=== PATIENT | male | born 1995 | race Hispanic/Latino ===

== ENCOUNTER 2016-06-18 08:00 | Emergency (ER) | payer OTHER ==
[2016-06-18 08:20] VITALS: BP 127/79
--- NOTE | 2016-06-18 16:29 | Emergency Department Report ---
HPI - General Chief Complaint: Chest Pain ED Past Medical Hx - Past Medical History Hx Hypertension: No Hx CVA: No Hx Heart Attack/AMI: No Hx Diabetes: No Hx Deep Vein Thrombosis: No Hx Pulmonary Embolism: No Hx GERD: No Hx Liver Disease: No Hx Renal Disease: No Hx Sickle Cell Disease: No Hx Arthritis: No Hx Headaches / Migraines: No Hx Seizures: No Hx Kidney Stones: No Hx Psychiatric Treatment: No (Anxiety) Hx Asthma: No Hx COPD: No Hx Dementia: No Hx HIV: No Additional medical history: h/o Drug and alcohol dependence - Surgical History Hx Coronary Stent: No Hx Open Heart Surgery: No Hx Pacemaker: No Hx Internal Defibrillator: No Hx Cholecystectomy: No Hx Appendectomy: No Hx Breast Surgery: No - Social History Smoking Status: Current Every Day Smoker Substance Use Type: None - Medications Home Medications: Home Medications Medication Instructions Recorded Confirmed Last Taken Type Acetamin/Codeine 120-12Mg/5 ml 5 ml PO TID PRN #30 ml 03/03/15 Unknown Rx [Tylenol/Codeine] Ondansetron [Zofran Odt] 4 mg PO Q4H #14 tab.rapdis 03/03/15 Unknown Rx Acetaminophen/Codeine 1 tab PO Q6H PRN #20 tab 03/31/15 Unknown Rx [Acetaminophen-Codeine #3 TAB] Amoxicillin [Trimox CAP] 500 mg PO Q8H #30 capsule 03/31/15 Unknown Rx Ibuprofen [Motrin 600 MG tab] 600 mg PO Q8H PRN #60 tablet 03/31/15 Unknown Rx predniSONE [Deltasone] 40 mg PO DAILY #10 tab 03/31/15 Unknown Rx Prednisone [predniSONE 10 mg 10 mg PO .TAPER #1 tab.ds.pk 04/05/15 Unknown Rx (6-Day Pack, 21 Tabs)] Promethazine [Phenergan TAB] 25 mg PO Q6HR PRN #20 tab 04/05/15 Unknown Rx hydrOXYzine PAMOATE [Vistaril] 25 mg PO Q6HR PRN #16 capsule 12/25/15 Unknown Rx Amoxicillin/K Clav Tab [Augmentin 1 tab PO Q12HR #20 tab 03/30/16 Unknown Rx 875 mg] Ibuprofen [Motrin] 800 mg PO Q8HR PRN #21 tablet 03/30/16 Unknown Rx ED Review of Systems ROS: Stated complaint: CHEST PAIN/SOB Other details as noted in HPI Physical Exam - Physical Exam Vital Signs: Vital Signs 06/18/16 08:15 Temperature 98.5 F Pulse Rate 80 Respiratory 16 Rate Blood Pressure 127/79 O2 Sat by Pulse 98 Oximetry ED Course Vital Signs 06/18/16 08:15 Temperature 98.5 F Pulse Rate 80 Respiratory 16 Rate Blood Pressure 127/79 O2 Sat by Pulse 98 Oximetry Critical care attestation.: If time is entered above; I have spent that time in minutes in the direct care of this critically ill patient, excluding procedure time. ED Disposition Condition: Stable Referrals: PRIMARY CARE [Primary Care Provider] - 3-5 Days
--- NOTE | 2016-06-19 06:15 | ED Elopement Review ---
ED Pt Elopement review - Call Back decision Pt Call Back Decision: No action required
== END 2016-06-18 16:00 | disposition left against medical advice (07) ==
LOC: ED 08:00
DX: R07.9 Chest pain, unspecified (principal); Z53.21 Procedure and treatment not carried out due to patient leaving prior to being seen by health care provider

== ENCOUNTER 2018-09-23 07:23 | Emergency (ER) | payer SELFPAY ==
[2018-09-23 08:17] VITALS: BP 126/78
--- NOTE | 2018-09-23 09:37 | Emergency Department Report ---
ED General Adult HPI - General Stated complaint: CHEST PAIN/RT SIDE PAIN Time Seen by Provider: 09/23/18 09:22 - History of Present Illness Initial comments: Patient is a 23-year-old male who is presenting with cough, congestion and sore throat for last 3 days. Patient states that most of his pain is with swallowing. This is a 6 out of 10 in severity and sharp. Patient also is complaining of some sinus congestion as well. Patient feels great aching in his chest has a dry cough. Patient denies any fevers chills nausea vomiting or diarrhea time. Improves with: none - Related Data Previous Rx's Medication Instructions Recorded Last Taken Type Acetamin/Codeine 120-12Mg/5 ml 5 ml PO TID PRN #30 ml 03/03/15 Unknown Rx [Tylenol/Codeine] Ondansetron [Zofran Odt] 4 mg PO Q4H #14 tab.rapdis 03/03/15 Unknown Rx Acetaminophen/Codeine [Tylenol 1 tab PO Q6H PRN #20 tab 03/31/15 Unknown Rx /Codeine # 3 tab] Amoxicillin [Trimox CAP] 500 mg PO Q8H #30 capsule 03/31/15 Unknown Rx Ibuprofen [Motrin 600 MG tab] 600 mg PO Q8H PRN #60 tablet 03/31/15 Unknown Rx predniSONE [Deltasone] 40 mg PO DAILY #10 tab 03/31/15 Unknown Rx Prednisone [predniSONE 10 mg 10 mg PO .TAPER #1 tab.ds.pk 04/05/15 Unknown Rx (6-Day Pack, 21 Tabs)] Promethazine [Phenergan] 25 mg PO Q6HR PRN #20 tab 04/05/15 Unknown Rx hydrOXYzine PAMOATE [Vistaril] 25 mg PO Q6HR PRN #16 capsule 12/25/15 Unknown Rx Amoxicillin/K Clav Tab [Augmentin 1 tab PO Q12HR #20 tab 03/30/16 Unknown Rx 875 mg] Ibuprofen [Motrin] 800 mg PO Q8HR PRN #21 tablet 03/30/16 Unknown Rx Amoxicillin/Potassium Clav 1 each PO BID #14 tablet 09/23/18 Unknown Rx [Augmentin 875-125 Tablet] Benzonatate [Tessalon Perles] 100 mg PO Q8HR #10 capsule 05/20/19 Unknown Rx Fluticasone [Flonase] 1 spray NS QDAY #1 bottle 09/23/18 Unknown Rx predniSONE [Deltasone] 20 mg PO QDAY #5 tab 09/23/18 Unknown Rx traMADol [Ultram] 50 mg PO Q6HR PRN #12 tablet 09/23/18 Unknown Rx Allergies Allergy/AdvReac Type Severity Reaction Status Date / Time No Known Allergies Allergy Verified 02/05/14 11:54 ED Review of Systems ROS: Stated complaint: CHEST PAIN/RT SIDE PAIN Other details as noted in HPI Comment: All other systems reviewed and negative ED Past Medical Hx - Past Medical History Hx Hypertension: No Hx CVA: No Hx Heart Attack/AMI: No Hx Diabetes: No Hx Deep Vein Thrombosis: No Hx Pulmonary Embolism: No Hx GERD: No Hx Liver Disease: No Hx Renal Disease: No Hx Sickle Cell Disease: No Hx Arthritis: No Hx Headaches / Migraines: No Hx Seizures: No Hx Kidney Stones: No Hx Psychiatric Treatment: No (Anxiety) Hx Asthma: No Hx COPD: No Hx Dementia: No Hx HIV: No Additional medical history: h/o Drug and alcohol dependence - Surgical History Hx Coronary Stent: No Hx Open Heart Surgery: No Hx Pacemaker: No Hx Internal Defibrillator: No Hx Cholecystectomy: No Hx Appendectomy: No Hx Breast Surgery: No - Social History Smoking Status: Current Every Day Smoker Substance Use Type: Alcohol - Medications Home Medications: Home Medications Medication Instructions Recorded Confirmed Last Taken Type Acetamin/Codeine 120-12Mg/5 ml 5 ml PO TID PRN #30 ml 03/03/15 Unknown Rx [Tylenol/Codeine] Ondansetron [Zofran Odt] 4 mg PO Q4H #14 tab.rapdis 03/03/15 Unknown Rx Acetaminophen/Codeine [Tylenol 1 tab PO Q6H PRN #20 tab 03/31/15 Unknown Rx /Codeine # 3 tab] Amoxicillin [Trimox CAP] 500 mg PO Q8H #30 capsule 03/31/15 Unknown Rx Ibuprofen [Motrin 600 MG tab] 600 mg PO Q8H PRN #60 tablet 03/31/15 Unknown Rx predniSONE [Deltasone] 40 mg PO DAILY #10 tab 03/31/15 Unknown Rx Prednisone [predniSONE 10 mg 10 mg PO .TAPER #1 tab.ds.pk 04/05/15 Unknown Rx (6-Day Pack, 21 Tabs)] Promethazine [Phenergan] 25 mg PO Q6HR PRN #20 tab 04/05/15 Unknown Rx hydrOXYzine PAMOATE [Vistaril] 25 mg PO Q6HR PRN #16 capsule 12/25/15 Unknown Rx Amoxicillin/K Clav Tab [Augmentin 1 tab PO Q12HR #20 tab 03/30/16 Unknown Rx 875 mg] Ibuprofen [Motrin] 800 mg PO Q8HR PRN #21 tablet 03/30/16 Unknown Rx Amoxicillin/Potassium Clav 1 each PO BID #14 tablet 09/23/18 Unknown Rx [Augmentin 875-125 Tablet] Benzonatate [Tessalon Perles] 100 mg PO Q8HR #10 capsule 09/23/18 Unknown Rx Fluticasone [Flonase] 1 spray NS QDAY #1 bottle 09/23/18 Unknown Rx predniSONE [Deltasone] 20 mg PO QDAY #5 tab 09/23/18 Unknown Rx traMADol [Ultram] 50 mg PO Q6HR PRN #12 tablet 09/23/18 Unknown Rx ED Physical Exam - General General appearance: alert, in no apparent distress - Head Head exam: Present: atraumatic, normocephalic, other (frontal sinus tenderness) - Eye Eye exam: Present: normal appearance. Absent: PERRL, EOMI - ENT ENT exam: Present: mucous membranes moist - Expanded ENT Exam Expanded Mouth exam: Present: tongue normal. Absent: drooling, trismus, muffled voice, tongue elevation Throat exam: Positive: tonsillar erythema, other (tonsils surgically abscent). Negative: tonsillomegaly, tonsillar exudate - Neck Neck exam: Present: normal inspection - Respiratory Respiratory exam: Present: normal lung sounds bilaterally. Absent: respiratory distress, wheezes, rales - Cardiovascular Cardiovascular Exam: Present: regular rate, normal rhythm. Absent: systolic murmur, diastolic murmur, rubs, gallop - GI/Abdominal GI/Abdominal exam: Present: soft, normal bowel sounds. Absent: distended, tenderness, guarding - Rectal Rectal exam: Present: deferred - Extremities Exam Extremities exam: Present: normal inspection - Back Exam Back exam: Present: normal inspection - Neurological Exam Neurological exam: Present: alert, oriented X3 - Psychiatric Psychiatric exam: Present: normal affect, normal mood - Skin Skin exam: Present: warm, dry, intact, normal color. Absent: rash ED Course Vital Signs 09/23/18 08:12 Temperature 98.8 F Pulse Rate 94 H Respiratory 16 Rate Blood Pressure 126/78 O2 Sat by Pulse 98 Oximetry ED Medical Decision Making - EKG Data -: EKG Interpreted by Me EKG shows normal: sinus rhythm, axis, intervals, QRS complexes, ST-T waves Rate: normal - EKG Data Interpretation: normal EKG - Medical Decision Making Patient with pharyngitis and sinus congestion. Patient started on a Augmentin, steroids and medications for symptomatic relief. Critical care attestation.: If time is entered above; I have spent that time in minutes in the direct care of this critically ill patient, excluding procedure time. ED Disposition Clinical Impression: Acute pharyngitis Qualifiers: Pharyngitis/tonsillitis etiology: unspecified etiology Qualified Code(s): J02.9 - Acute pharyngitis, unspecified Acute sinusitis Qualifiers: Sinusitis location: unspecified location Recurrence: non-recurrent Qualified Code(s): J01.90 - Acute sinusitis, unspecified Disposition: DC-01 TO HOME OR SELFCARE Is pt being admited?: No Does the pt Need Aspirin: No Condition: Stable Instructions: Pharyngitis (ED), Sinusitis (ED) Referrals: [facility] [Other] - 3-5 Days Time of Disposition: 09:41
== END 2018-09-23 10:00 | disposition home or self-care (01) ==
LOC: ED 07:23
DX: J02.9 Acute pharyngitis, unspecified (principal); J01.90 Acute sinusitis, unspecified
CPT/HCPCS: 93005; 93010; 99282

== ENCOUNTER 2019-07-10 16:25 | Emergency (ER) | payer SELFPAY ==
--- NOTE | 2019-07-10 16:42 | Emergency Department Report ---
Blank Doc - Documentation Documentation: 23-year-old male that presents with n/v/d. This initial assessment/diagnostic orders/clinical plan/treatment(s) is/are subject to change based on patient's health status, clinical progression and re- assessment by fellow clinical providers in the ED. Further treatment and workup at subsequent clinical providers discretion. Patient/guardians urged not to elope from the ED as their condition may be serious if not clinically assessed and managed. Initial orders include: 1- Patient sent to [facility] for further evaluation and treatment 2- labs
[2019-07-10 16:46] VITALS: BP 139/93
[2019-07-10 17:03] LABS: Basophils # (Auto) 0.1 K/mm3 (0.0-0.1); Basophils % (Auto) 0.5 % (0.0-1.8); Eosinophils # (Auto) 0.1 K/mm3 (0.0-0.4); Eosinophils % (Auto) 0.6 % (0.0-4.3); Hematocrit 50.4 % (35.5-45.6); Hemoglobin 16.7 gm/dl (11.8-15.2); Lymphocytes # (Auto) 1.8 K/mm3 (1.2-5.4); Lymphocytes % (Auto) 15.8 % (13.4-35.0); Mean Corpuscular HGB Conc 33 % (32-34); Mean Corpuscular Volume 87 fl (84-94); Monocytes % (Auto) 9.1 % (0.0-7.3); Platelet Count 181 K/mm3 (140-440); Red Cell Distribution Width 13.5 % (13.2-15.2)
[2019-07-10 17:24] LABS: Alanine Aminotransferase 10 units/L (7-56); Albumin 5.1 g/dL (3.9-5); BUN/Creatinine Ratio 13; Blood Urea Nitrogen 10 mg/dL (9-20); Calcium 10.5 mg/dL (8.4-10.2); Hemolysis Index 13
== END 2019-07-10 16:50 | disposition left against medical advice (07) ==
LOC: ED 16:25
DX: R11.2 Nausea with vomiting, unspecified (principal); R42 Dizziness and giddiness; Z53.21 Procedure and treatment not carried out due to patient leaving prior to being seen by health care provider
CPT/HCPCS: 36415; 80053; 83690; 85025

== ENCOUNTER 2019-07-10 19:31 | Emergency (ER) | payer SELFPAY ==
[2019-07-10] MEDS ORDERED: dexAMETHasone 20 MG/5 ML VIAL IM ONE (20:06)
[2019-07-10] MEDS ORDERED: LIDOCAINE VISCOUS 2% 15 ML ORAL LIQD PO ONE (20:06)
[2019-07-10] MEDS ORDERED: ONDANSETRON 4 MG ODT TAB PO ONE (20:06)
[2019-07-10] MEDS ORDERED: ACETAMINOPHEN 500 MG TAB PO ONE (20:07)
[2019-07-10 20:23] VITALS: BP 126/96
--- NOTE | 2019-07-10 21:10 | XRay Report ---
CHEST 2 VIEWS INDICATION / CLINICAL INFORMATION: cough. COMPARISON: None available. FINDINGS: SUPPORT DEVICES: None. HEART / MEDIASTINUM: No significant abnormality. LUNGS / PLEURA: No significant pulmonary or pleural abnormality. No pneumothorax. ADDITIONAL FINDINGS: No significant additional findings. IMPRESSION: 1. No acute findings. Signer Name: Vinayak Kinney MD Signed: 07/10/2019 9:06 PM Workstation Name: [id number]
--- NOTE | 2019-07-10 23:06 | Emergency Department Report ---
ED N/V/D HPI - General Chief complaint: Nausea/Vomiting/Diarrhea Stated complaint: VOMITING/LOWER BACK PAIN Source: patient Mode of arrival: Ambulatory Limitations: No Limitations - History of Present Illness Initial comments: Patient is a 23-year-old white male with no past medical history who presents to the ED with complaint of acute onset persistent intermittent nausea and vomiting, sore throat, mild dry cough, diffuse body aches and pains and generalized weakness for the last 2 days. Patient denies chest pain, shortness of breath, abdominal pain, diarrhea, chest pain, dizziness, syncope, palpitations, dysuria, urinary frequency and urgency and testicular pain, headache or change in vision, fever and chills. MD complaint: nausea, vomiting, other (sore throat) -: Sudden, days(s) (2) Description of Vomiting: food contents Associated Abdominal Pain: No Location: diffuse Radiation: none Pain Scale: 0 Quality: dull Consistency: intermittent Improves with: none Worsens with: none Associated Symptoms: denies other symptoms, nausea/vomiting. denies: myalgias, chest pain, cough, diaphoresis, fever/chills, headaches, loss of appetite, rash, dysuria, shortness of breath, syncope - Related Data Previous Rx's Medication Instructions Recorded Last Taken Type Acetamin/Codeine 120-12Mg/5 ml 5 ml PO TID PRN #30 ml 03/03/15 Unknown Rx [Tylenol/Codeine] Ondansetron [Zofran Odt] 4 mg PO Q4H #14 tab.rapdis 03/03/15 Unknown Rx Acetaminophen/Codeine [Tylenol 1 tab PO Q6H PRN #20 tab 03/31/15 Unknown Rx /Codeine # 3 tab] Amoxicillin [Trimox CAP] 500 mg PO Q8H #30 capsule 03/31/15 Unknown Rx predniSONE [Deltasone] 40 mg PO DAILY #10 tab 03/31/15 Unknown Rx Promethazine [Phenergan] 25 mg PO Q6HR PRN #20 tab 04/05/15 Unknown Rx hydrOXYzine PAMOATE [Vistaril] 25 mg PO Q6HR PRN #16 capsule 12/25/15 Unknown Rx Amoxicillin/K Clav Tab [Augmentin 1 tab PO Q12HR #20 tab 03/30/16 Unknown Rx 875 mg] Ibuprofen [Motrin] 800 mg PO Q8HR PRN #21 tablet 03/30/16 Unknown Rx Amoxicillin/Potassium Clav 1 each PO BID #14 tablet 09/23/18 Unknown Rx [Augmentin 875-125 Tablet] Benzonatate [Tessalon Perles] 100 mg PO Q8HR #10 capsule 09/23/18 Unknown Rx Fluticasone [Flonase] 1 spray NS QDAY #1 bottle 09/23/18 Unknown Rx predniSONE [Deltasone] 20 mg PO QDAY #5 tab 09/23/18 Unknown Rx traMADoL [Ultram] 50 mg PO Q6HR PRN #12 tablet 09/23/18 Unknown Rx Azithromycin [Zithromax Z-KADE] 250 mg PO DAILY #6 tablet 07/10/19 Unknown Rx Ibuprofen [Motrin 600 MG tab] 600 mg PO Q8H PRN #24 tablet 07/10/19 Unknown Rx Lidocaine Viscous 2% 10 ml PO Q6H PRN #120 ml 07/10/19 Unknown Rx Prednisone [predniSONE 10 mg 10 mg PO .TAPER #1 tab.ds.pk 07/10/19 Unknown Rx (6-Day Pack, 21 Tabs)] Allergies Allergy/AdvReac Type Severity Reaction Status Date / Time No Known Allergies Allergy Verified 07/10/19 16:28 ED Review of Systems ROS: Stated complaint: VOMITING/LOWER BACK PAIN Other details as noted in HPI Constitutional: denies: chills, fever Eyes: denies: eye pain, eye discharge, vision change ENT: throat pain, congestion. denies: ear pain Respiratory: cough. denies: shortness of breath, wheezing Cardiovascular: denies: chest pain, palpitations Endocrine: no symptoms reported Gastrointestinal: nausea, vomiting. denies: abdominal pain, diarrhea Genitourinary: denies: urgency, dysuria Musculoskeletal: denies: back pain, joint swelling, arthralgia Skin: denies: rash, lesions Neurological: denies: headache, weakness, paresthesias Psychiatric: denies: anxiety, depression Hematological/Lymphatic: denies: easy bleeding, easy bruising ED Past Medical Hx - Past Medical History Hx Hypertension: No Hx CVA: No Hx Heart Attack/AMI: No Hx Diabetes: No Hx Deep Vein Thrombosis: No Hx Pulmonary Embolism: No Hx GERD: No Hx Liver Disease: No Hx Renal Disease: No Hx Sickle Cell Disease: No Hx Arthritis: No Hx Headaches / Migraines: No Hx Seizures: No Hx Kidney Stones: No Hx Psychiatric Treatment: (Anxiety) Hx Asthma: No Hx COPD: No Hx Dementia: No Hx HIV: No Additional medical history: h/o Drug and alcohol dependence - Surgical History Hx Coronary Stent: No Hx Open Heart Surgery: No Hx Pacemaker: No Hx Internal Defibrillator: No Hx Cholecystectomy: No Hx Appendectomy: No Hx Breast Surgery: No - Social History Smoking Status: Current Some Day Smoker Substance Use Type: None - Medications Home Medications: Home Medications Medication Instructions Recorded Confirmed Last Taken Type Acetamin/Codeine 120-12Mg/5 ml 5 ml PO TID PRN #30 ml 03/03/15 Unknown Rx [Tylenol/Codeine] Ondansetron [Zofran Odt] 4 mg PO Q4H #14 tab.rapdis 03/03/15 Unknown Rx Acetaminophen/Codeine [Tylenol 1 tab PO Q6H PRN #20 tab 03/31/15 Unknown Rx /Codeine # 3 tab] Amoxicillin [Trimox CAP] 500 mg PO Q8H #30 capsule 03/31/15 Unknown Rx predniSONE [Deltasone] 40 mg PO DAILY #10 tab 03/31/15 Unknown Rx Promethazine [Phenergan] 25 mg PO Q6HR PRN #20 tab 04/05/15 Unknown Rx hydrOXYzine PAMOATE [Vistaril] 25 mg PO Q6HR PRN #16 capsule 12/25/15 Unknown Rx Amoxicillin/K Clav Tab [Augmentin 1 tab PO Q12HR #20 tab 03/30/16 Unknown Rx 875 mg] Ibuprofen [Motrin] 800 mg PO Q8HR PRN #21 tablet 03/30/16 Unknown Rx Amoxicillin/Potassium Clav 1 each PO BID #14 tablet 09/23/18 Unknown Rx [Augmentin 875-125 Tablet] Benzonatate [Tessalon Perles] 100 mg PO Q8HR #10 capsule 09/23/18 Unknown Rx Fluticasone [Flonase] 1 spray NS QDAY #1 bottle 09/23/18 Unknown Rx predniSONE [Deltasone] 20 mg PO QDAY #5 tab 09/23/18 Unknown Rx traMADoL [Ultram] 50 mg PO Q6HR PRN #12 tablet 09/23/18 Unknown Rx Azithromycin [Zithromax Z-KADE] 250 mg PO DAILY #6 tablet 07/10/19 Unknown Rx Ibuprofen [Motrin 600 MG tab] 600 mg PO Q8H PRN #24 tablet 07/10/19 Unknown Rx Lidocaine Viscous 2% 10 ml PO Q6H PRN #120 ml 07/10/19 Unknown Rx Prednisone [predniSONE 10 mg 10 mg PO .TAPER #1 tab.ds.pk 07/10/19 Unknown Rx (6-Day Pack, 21 Tabs)] ED Physical Exam - General Limitations: No Limitations General appearance: alert, in no apparent distress - Head Head exam: Present: atraumatic, normocephalic, normal inspection - Eye Eye exam: Present: normal appearance, PERRL, EOMI Pupils: Present: normal accommodation - ENT ENT exam: Present: normal exam, mucous membranes moist, TM's normal bilaterally, normal external ear exam, other (erythematous ) - Neck Neck exam: Present: normal inspection, full ROM. Absent: tenderness, lymphadenopathy - Respiratory Respiratory exam: Present: normal lung sounds bilaterally. Absent: respiratory distress, wheezes, rhonchi, accessory muscle use, decreased breath sounds - Cardiovascular Cardiovascular Exam: Present: regular rate, normal rhythm, normal heart sounds. Absent: systolic murmur, diastolic murmur, rubs, gallop - GI/Abdominal GI/Abdominal exam: Present: soft, normal bowel sounds. Absent: tenderness, guarding, hyperactive bowel sounds, hypoactive bowel sounds - Extremities Exam Extremities exam: Present: normal inspection, full ROM, normal capillary refill - Back Exam Back exam: Present: normal inspection, full ROM. Absent: muscle spasm, paraspinal tenderness - Neurological Exam Neurological exam: Present: alert, oriented X3, CN II-XII intact, normal gait, reflexes normal - Psychiatric Psychiatric exam: Present: normal affect, normal mood - Skin Skin exam: Present: warm, dry, intact, normal color. Absent: rash ED Course Vital Signs 07/10/19 19:39 Temperature 98.8 F Pulse Rate 97 H Respiratory 18 Rate Blood Pressure 126/96 O2 Sat by Pulse 99 Oximetry ED Medical Decision Making - Radiology Data Radiology results: report reviewed, image reviewed Chest x-ray shows no acute cardiopulmonary abnormalities or pneumonitis. - Medical Decision Making This is a 23-year-old male who presented to the ED with persistent nausea and vomiting intermittently for 2 days with sore throat, mild dry cough and generalized weakness and body aches with chills. In the ED, patient is alert and oriented x3 and is not in distress. Chest x-ray shows no acute cardiopulmonary abnormalities or pneumonitis. Patient was treated for nausea and vomiting and also given pain medications and viscous 2% lidocaine orally for sore throat. Patient was discharged home on medications and advised follow-up with his primary care physician in 7 to 10 days for reevaluation or return to the ED immediately if symptoms get worse. - Differential Diagnosis acute pharyngitis; dehydration; flu like; URI Critical care attestation.: If time is entered above; I have spent that time in minutes in the direct care of this critically ill patient, excluding procedure time. ED Disposition Clinical Impression: Nausea and vomiting in adult Acute pharyngitis Qualifiers: Pharyngitis/tonsillitis etiology: unspecified etiology Qualified Code(s): J02.9 - Acute pharyngitis, unspecified Acute bronchitis Qualifiers: Bronchitis organism: unspecified organism Qualified Code(s): J20.9 - Acute bronchitis, unspecified Disposition: - TO HOME OR SELFCARE Is pt being admited?: No Does the pt Need Aspirin: No Condition: Stable Instructions: Acute Bronchitis (ED), Pharyngitis (ED), Tonsillitis (ED), Acute Nausea and Vomiting (ED), Upper Respiratory Infection (ED) Additional Instructions: Take medication with food, drink plenty of fluids and follow-up with your primary care physician in 7 to 10 days for reevaluation. Return to the ED immediately if symptoms get worse. Prescriptions: Lidocaine Viscous 2% 10 ml PO Q6H PRN #120 ml PRN Reason: Sore Throat Ibuprofen [Motrin 600 MG tab] 600 mg PO Q8H PRN #24 tablet PRN Reason: Pain Prednisone [predniSONE 10 mg (6-Day Pack, 21 Tabs)] 10 mg PO .TAPER #1 tab.ds.pk Azithromycin [Zithromax Z-KADE] 250 mg PO DAILY #6 tablet Referrals: [facility] [Outside] - 3-5 Days Time of Disposition: 23:10 Print Language: ARABIC
== END 2019-07-10 23:40 | disposition home or self-care (01) ==
LOC: ED 19:31
DX: J02.9 Acute pharyngitis, unspecified (principal); R11.2 Nausea with vomiting, unspecified; J40 Bronchitis, not specified as acute or chronic; F41.9 Anxiety disorder, unspecified
CPT/HCPCS: 71046; 96372; 99283; J1100; Q0162

== ENCOUNTER 2021-06-21 00:46 | Emergency (ER) | payer SELFPAY | END 2021-06-21 03:21 | disposition left against medical advice (07) | LOC: ED 00:46 | DX: R19.7 Diarrhea, unspecified (principal); Z53.21 Procedure and treatment not carried out due to patient leaving prior to being seen by health care provider ==